=== PATIENT | male | born 1985 | race Hispanic/Latino ===

== ENCOUNTER 2017-12-06 09:12 | Emergency (ER) | payer SELFPAY ==
[2017-12-06] MEDS ORDERED: SODIUM CHLORIDE 0.9% 1000ML 1,000 ML IV ONE (09:34)
[2017-12-06 10:03] LABS: CREATININE 0.9 mg/dL (0.5-1.5); POTASSIUM 3.9 mmol/L (3.5-5.1)
[2017-12-06] MEDS ORDERED: ACETAMINOPHEN EXTRA STRENGTH 500 MG TABLET ONE (10:10)
[2017-12-06 10:18] LABS: BASOPHILS % (AUTO) 0.5 % (0.0-5.0); EOSINOPHILS % (AUTO) 1.9 % (0.0-8.0); HEMATOCRIT 43.1 % (42-54); LYMPHOCYTES % (AUTO) 26.3 % (21.0-51.0); MEAN CORPUSCULAR HEMOGLOBIN 28.7 pg (27.0-33.0); MEAN CORPUSCULAR HGB CONC 34.9 g/dL (32.0-36.0); MEAN CORPUSCULAR VOLUME 82.3 fL (79-99); MONOCYTES % (AUTO) 5.2 % (3.0-13.0); NEUTROPHILS % (AUTO) 66.1 % (40.0-77.0); NUCLEATED RED BLOOD CELLS 0.1 % (0.0-0.19); PLATELET COUNT (AUTO) 199 K/uL (130-400); RED BLOOD CELL COUNT(AUTO) 5.24 MIL/uL (4.50-6.20); RED CELL DISTRIBUTION WIDTH 12.6 % (11.0-15.5); WHITE BLOOD COUNT (AUTO) 6.7 K/uL (4.8-10.8)
[2017-12-06] MEDS ORDERED: ONDANSETRON HCL 4 MG/2 ML VIAL ONE (10:28)
[2017-12-06] MEDS ORDERED: METOCLOPRAMIDE 10 MG TABLET ONE (10:31)
[2017-12-06 11:02] LABS: APPEARANCE,URINE Clear (CLEAR); BILIRUBIN,URINE Negative (NEGATIVE); COLOR,URINE Yellow (YELLOW); GLUCOSE, URINE (UA) >=1000 mg/dL (NEGATIVE); KETONES,URINE 40 mg/dL (NEGATIVE); LEUKOCYTE ESTERASE ,URINE Negative (NEGATIVE); NITRATE,URINE Negative (NEGATIVE); OCCULT BLOOD,URINE Negative (NEGATIVE); PROTEIN,URINE Negative (NEGATIVE); UROBILINOGEN,URINE 0.2 mg/dL (0.2-1.0)
[2017-12-06 11:08] LABS: AMPHET/METH SCREEN,URINE NEGATIVE (NEGATIVE); BARBITURATE SCREEN, URINE NEGATIVE (NEGATIVE); BENZODIAZEPINES SCREEN,URINE NEGATIVE (NEGATIVE); CANNABINOID SCREEN,URINE NEGATIVE (NEGATIVE); COCAINE SCREEN,URINE POSITIVE (NEGATIVE); OPIATE SCREEN,URINE NEGATIVE (NEGATIVE); PHENCYCLIDINE SCREEN,URINE NEGATIVE (NEGATIVE)
[2017-12-06 11:31] LABS: RBC,URINE 0-1 /HPF (0-1); WBC,URINE 0-1 /HPF (0-1)
[2017-12-06 11:32] LABS: BACTERIA,URINE Few /HPF (None Seen)
== END 2017-12-06 13:20 | disposition home or self-care (01) ==
LOC: EDH 09:12
DX: S09.8XXA Other specified injuries of head, initial encounter (principal); T40.5X5A Adverse effect of cocaine, initial encounter; R51 Headache; I10 Essential (primary) hypertension; E11.9 Type 2 diabetes mellitus without complications; Z88.8 Allergy status to other drugs, medicaments and biological substances; V48.5XXA Car driver injured in noncollision transport accident in traffic accident, initial encounter; Y93.89 Activity, other specified; Y92.410 Unspecified street and highway as the place of occurrence of the external cause; Y99.8 Other external cause status
CPT/HCPCS: 36415; 70450; 80048; 80305; 81001; 85025; 93005; 96361; 96374; 99285; J2405; J7030

== ENCOUNTER 2018-04-01 15:34 | Emergency (ER) | payer SELFPAY | END 2018-04-01 16:03 | disposition home or self-care (01) | LOC: EDH 15:34 | DX: L03.032 Cellulitis of left toe (principal); E11.9 Type 2 diabetes mellitus without complications; I10 Essential (primary) hypertension ==

== ENCOUNTER 2018-08-21 15:03 | Emergency (ER) | payer SELFPAY ==
[2018-08-21] MEDS ORDERED: KETOROLAC TROMETHAMINE 60 MG/2 ML VIAL ONE (15:28)
[2018-08-21] MEDS ORDERED: ORPHENADRINE CITRATE 30 MG/ML ML ONE (15:28)
== END 2018-08-21 16:19 | disposition home or self-care (01) ==
LOC: EDH 15:03
DX: M62.838 Other muscle spasm (principal); M79.602 Pain in left arm
CPT/HCPCS: 72040; 96372 ×2; 99284; J1885; J2360

== ENCOUNTER 2019-02-04 21:25 | Emergency (ER) | payer OTHER ==
[2019-02-04 22:04] LABS: BASOPHILS % (AUTO) 0.3 % (0.0-5.0); EOSINOPHILS % (AUTO) 1.6 % (0.0-8.0); HEMATOCRIT 44.2 % (42-54); LYMPHOCYTES % (AUTO) 17.6 % (21.0-51.0); MEAN CORPUSCULAR HEMOGLOBIN 29.2 pg (27.0-33.0); MEAN CORPUSCULAR HGB CONC 34.4 g/dL (32.0-36.0); MEAN CORPUSCULAR VOLUME 85.1 fL (79-99); MONOCYTES % (AUTO) 4.4 % (3.0-13.0); NEUTROPHILS % (AUTO) 76.1 % (40.0-77.0); NUCLEATED RED BLOOD CELLS 0.1 % (0.0-0.19); PLATELET COUNT (AUTO) 176 K/uL (130-400); RED BLOOD CELL COUNT(AUTO) 5.19 MIL/uL (4.50-6.20); RED CELL DISTRIBUTION WIDTH 12.9 % (11.0-15.5); WHITE BLOOD COUNT (AUTO) 7.6 K/uL (4.8-10.8)
[2019-02-04 22:28] LABS: ALBUMIN 3.6 g/dL (3.5-5.0); BILIRUBIN,TOTAL 0.4 mg/dL (0.2-1.0); TOTAL PROTEIN, SERUM 6.8 g/dL (6.0-8.3)
[2019-02-04] MEDS ORDERED: METFORMIN HCL 500 MG TABLET ONE (22:47)
[2019-02-04] MEDS ORDERED: LIDOCAINE 5% TOPICAL PATCH TP ONE (23:29)
[2019-02-04] MEDS ORDERED: KETOROLAC TROMETHAMINE 30MG/ML ONE (23:29)
== END 2019-02-05 00:15 | disposition home or self-care (01) ==
LOC: EDH 21:25
DX: E86.9 Volume depletion, unspecified (principal); R55 Syncope and collapse; M62.838 Other muscle spasm; E11.9 Type 2 diabetes mellitus without complications; I10 Essential (primary) hypertension; Z88.8 Allergy status to other drugs, medicaments and biological substances; Z98.890 Other specified postprocedural states
CPT/HCPCS: 36415; 72040; 80053; 82550; 85025; 93005; 96361; 96374; 99285; J1885

== ENCOUNTER 2019-02-05 18:46 | Emergency (ER) | payer OTHER ==
[2019-02-05] MEDS ORDERED: PROCHLORPERAZINE EDISYLATE 10 MG/2 ML VIAL ONE (19:20)
[2019-02-05] MEDS ORDERED: DiphenhydrAMINE HCL 50 MG/ML VIAL ONE (19:34)
== END 2019-02-05 20:53 | disposition home or self-care (01) ==
LOC: EDH 18:46
DX: R51 Headache (principal); E11.9 Type 2 diabetes mellitus without complications; I10 Essential (primary) hypertension; F43.10 Post-traumatic stress disorder, unspecified; Z98.890 Other specified postprocedural states; Z88.8 Allergy status to other drugs, medicaments and biological substances
CPT/HCPCS: 70450; 96374; 96375; 99284; J0780; J1200

== ENCOUNTER 2020-03-16 07:16 | Emergency (ER) | payer SELFPAY | END 2020-03-16 08:09 | disposition home or self-care (01) | LOC: EDH 07:16 | DX: Z00.00 Encounter for general adult medical examination without abnormal findings (principal); I10 Essential (primary) hypertension; E11.9 Type 2 diabetes mellitus without complications; F43.10 Post-traumatic stress disorder, unspecified; Z88.8 Allergy status to other drugs, medicaments and biological substances | CPT/HCPCS: 99281 ==

== ENCOUNTER 2024-08-13 17:16 | Emergency (ER) | payer SELFPAY ==
[~2024-08-13] VITALS: Ht 176.5 cm; Wt 102.1 kg
[2024-08-13 17:56] VITALS: BP 162/82; PULSE 85; RESP 18; TEMP 98
--- NOTE | 2024-08-13 18:13 | ERN ---
ED Note History of Present Illness Stated Complaint: RIGHT FORE ARM PUNCTURE WOUND Chief Complaint: Upper Extremity Pain/Injury Time Seen by MD: 17:21 Time Seen by Midlevel: 17:21 Dictation: Patient is a 38-year-old male with a history of diabetes, hypertension who presents to the emergency department with complaints of right forearm puncture wound onset this morning. Patient reports he was moving some pallets and one of them had a nail in the nail puncture his skin which he removed. Patient does not recall his last tetanus shot. Patient reports also right hand pain for three weeks. Denies any injury but reports that pain is worse when closing hand and reports some numbness to 2nd 3rd and 4th fingers. Allergies: Coded Allergies: naproxen (Unverified Allergy, Unknown, 03/16/20) Home Meds Active Scripts Cephalexin Monohydrate (Keflex) 500 Mg Cap, 500 MG PO QID for 7 Days, #28 CAP Prov:VALENCIA VILLARREAL FORMULATOR 08/13/24 Past Medical History Past Medical History: Diabetes-Type II, Hypertension Surgical History: Other Surgical History Other: LEFT GREAT TOE INCISION RN Note Reviewed/Agreed w/PFSH: Yes Review of System Dictation Constitutional: Negative for fever,chills, and weight loss Eyes: Negative for injury, pain,redness, and discharge ENT: Negative for injury,pain or swelling Cardiovascular: Negative for chest pain, palpitations, and edema Respiratory: Negative for shortness of breath, cough, and wheezing, Abdomen/GI: Negative for abdominal pain, nausea, vomiting, diarrhea, and constipation Back: Negative for injury and pain : Negative for injury, bleeding and discharge MS/Extremity: Positive for right hand pain Skin: Positive for puncture wound right forearm Neuro: Negative for headache, weakness, numbness, tingling, and seizure Psych: Negative for suicide ideation, homicidal ideation, and hallucinations Initial Vital Sign VS Vital Signs Date Time Temp Pulse Resp B/P (MAP) Pulse Ox O2 Delivery O2 Flow Rate FiO2 08/13/24 17:56 98.1 85 18 162/82 99 Room Air 0 Physical Exam Dictation Vital Signs reviewed General Appearance: Alert, oriented x 3, no acute distress, well developed, nourished. Head and Face: non-traumatic. Eyes: PERRL, pink conjunctivas, eyelid no trauma, anterior chamber with arcus senilis. Ears: Pinnas intact and no signs of trauma or erythema ear canals clear and no discharge TM no erythema Nose: No discharge, no bleeding. Oropharynx: Mouth normal, tongue pink. pharynx clear,no erythema, tonsils no exudates, no abscesses noted, mucous membrane moist Neck: Supple, non-tender, no thyromegaly, no masses, no JVD, no bruits Breast:Deferred Chest:No tenderness, no crepitus, no paradoxical movement, no retractions Lungs:Clear, well-ventilated, symmetric, no rales, no wheezing, no rhonchi, no stridor, good breath sounds bilaterally Heart: Regular rate, regular rhythm, no murmur, no gallops Vascular: no peripheral edema, Abdomen: Soft, positive bowel sounds, nondistended, no guarding, nontender, no rebound, no masses no hepatomegaly, no splenomegaly, no Smith's sign, no hernias. Rectal: Deferred Genital: Deferred Neurological: Normal speech, motor function intact, sensory function intact Musculoskeletal: Neck nontender, full range of motion, back nontender, full range of motion, Extremities: nontender, full range of motion , full range of motion to hand, cap refill less than 2 seconds no wounds, small less than 0.2 Cm puncture wound to mid right forearm, no active bleeding. Skin: Color pink, dry, no turgor, no rash, no lacerations, no abrasions, no contusions. Lymphatic: Deferred Results (Laboratory/Radiology) Laboratory/Radiology Laboratory Tests Test 08/13/24 18:06 Urine Opiates Screen NEGATIVE (NEGATIVE) Urine Barbiturates Screen NEGATIVE (NEGATIVE) Urine Phencyclidine Screen NEGATIVE (NEGATIVE) Urine Amphetamines Screen NEGATIVE (NEGATIVE) Urine Benzodiazepines Screen NEGATIVE (NEGATIVE) Urine Cocaine Screen NEGATIVE (NEGATIVE) Urine Marijuana (THC) Screen NEGATIVE (NEGATIVE) REASON: pain ORDERING PHYSICIAN: VALENCIA VILLARREAL FORMULATOR PROCEDURE: FORARMR - FOREARM 2VWS RT RIGHT FOREARM RADIOGRAPHS - 2 VIEWS INDICATION: Pain COMPARISON: None FINDINGS: AP and lateral views. No acute fracture or subluxation identified. No radiopaque foreign body noted. IMPRESSION: No evidence for fracture or dislocation. REASON: pain ORDERING PHYSICIAN: VALENCIA VILLARREAL FORMULATOR PROCEDURE: FORARMR - FOREARM 2VWS RT RIGHT FOREARM RADIOGRAPHS - 2 VIEWS INDICATION: Pain COMPARISON: None FINDINGS: AP and lateral views. No acute fracture or subluxation identified. No radiopaque foreign body noted. IMPRESSION: No evidence for fracture or dislocation. Labs Reviewed?: Yes ED Course ED Course Orders Procedure Category Date Status Time Hand 3+Vws Rt RAD 08/13/24 Resulted 17:47 Forearm 2vws Rt RAD 08/13/24 Resulted 17:47 Diph,Pertuss(Acell),Tet PHA 08/13/24 Complete Vac/Pf (Tdap) 18:00 Wound Care (Er) CPOE 08/13/24 Transmitted 17:47 Acetaminophen 500mg PHA 08/13/24 Complete Tab (Tylenol 500mg T 18:00 Thumb & Wrist JAN.ER 08/13/24 Complete Immobilizer 18:41 Drug Screen Urine LAB 08/13/24 Complete 18:44 Current Medications Medications (Trade) Dose Ordered Sig/Serina Route PRN Reason Start Time Stop Time Status Last Admin Dose Admin Acetaminophen (TYLenol 500MG TAB) 1,000 mg ONCE ONCE PO 08/13/24 18:00 08/13/24 18:01 DC 08/13/24 18:14 Diphtheria/ Tetanus/Acell Pertussis (Tdap) 0.5 ml ONCE ONCE IM 08/13/24 18:00 08/13/24 18:01 DC 08/13/24 18:44 Vital Signs Date Time Temp Pulse Resp B/P (MAP) Pulse Ox O2 Delivery O2 Flow Rate FiO2 08/13/24 17:56 98.1 85 18 162/82 99 Room Air 0 Medical Decision Making MDM Patient is a 38-year-old male with a history of diabetes, hypertension who presents to the emergency department with complaints of right forearm puncture wound onset this morning. Patient reports he was moving some pallets and one of them had a nail in the nail puncture his skin which he removed. Patient does not recall his last tetanus shot. Patient reports also right hand pain for three weeks. Denies any injury but reports that pain is worse when closing hand and reports some numbness to 2nd 3rd and 4th fingers. Hand and forearm x-ray showed no acute fractures. Patient's wound is significantly small and no repair required. Patient will be discharged to follow up with PCP. Differential diagnosis: Hand fracture, retained foreign body, ulna fracture, cellulitis Need for hospitalization: Patient does not meet criteria for hospitalization. There are no social concerns with this patient. DX & DISP Disposition: Discharge Departure Impression: Primary Impression: Puncture wound Additional Impression: Carpal tunnel syndrome Condition: Stable Scripts Cephalexin Monohydrate (Keflex) 500 Mg Cap 500 MG PO QID for 7 Days, #28 CAP Prov: VALENCIA VILLARREAL 08/13/24 Additional Instructions: FOLLOW-UP WITH PRIMARY CARE PROVIDER IN 1 TO 2 DAYS. TAKE MEDICATIONS DIRECTED HERE IN THE EMERGENCY ROOM. OKAY TO CONTINUE HOME MEDICATIONS UNLESS OTHERWISE DISCUSSED DURING YOUR VISIT IN THE EMERGENCY ROOM TODAY. RETURN TO YOUR NEAREST EMERGENCY ROOM IF SYMPTOMS WORSEN OR IF THERE IS NO IMPROVEMENT. CALL 911 IF YOU NEED IMMEDIATE ASSISTANCE. TAKE TYLENOL OR MOTRIN [id number] NEEDED AND IF NO CONTRAINDICATIONS ARE PRESENT. INCREASE ORAL HYDRATION. A WOUND CULTURE OR URINE CULTURE WAS ORDERED HERE IN THE [facility] DEPARTMENT PLEASE FOLLOW-UP WITH PRIMARY CARE PROVIDER AND ADVISE THEM TO GET REPEAT PORTS FROM OUR FACILITY. IF YOU HAD ANY NAJMA WRAP/SPLINTS THAT WERE APPLIED HERE, PLEASE DO NOT REMOVE THEM UNTIL YOU SEE YOUR PRIMARY CARE OR SPECIALTY. Referrals: NONE (PCP) Time of Disposition: 18:44 I have reviewed the case, and I agree with, Diagnosis and Plan VALENCIA VILLARREAL Aug 13, 2024 18:13 MARYAM FRIEDMAN DO Aug 15, 2024 07:53
[2024-08-13] MEDS: acetaMINOPHEN 500 MG TABLET PO ONE (18:14)
--- NOTE | 2024-08-13 18:32 | HMCIMG ---
RIGHT HAND RADIOGRAPHS - 3 VIEWS INDICATION: Pain COMPARISON: None FINDINGS: AP, lateral, and oblique views. No acute fracture of subluxation identified. Scaphoid bone is intact. Carpal alignment and ulnar variance is within normal limits. No radiopaque foreign body noted. IMPRESSION: No evidence for fracture or subluxation.
--- NOTE | 2024-08-13 18:34 | HMCIMG ---
RIGHT FOREARM RADIOGRAPHS - 2 VIEWS INDICATION: Pain COMPARISON: None FINDINGS: AP and lateral views. No acute fracture or subluxation identified. No radiopaque foreign body noted. IMPRESSION: No evidence for fracture or dislocation.
[2024-08-13] MEDS: DIPH,PERTUSS(ACELL),TET VAC/PF 0.5 ML VIAL IM ONE (18:44)
[2024-08-13] MEDS ORDERED: CEPH500B PO (18:54)
[2024-08-13 20:41] LABS: AMPHET/METH SCREEN,URINE NEGATIVE (NEGATIVE); BARBITURATE SCREEN, URINE NEGATIVE (NEGATIVE); BENZODIAZEPINES SCREEN,URINE NEGATIVE (NEGATIVE); CANNABINOID SCREEN,URINE NEGATIVE (NEGATIVE); COCAINE SCREEN,URINE NEGATIVE (NEGATIVE); OPIATE SCREEN,URINE NEGATIVE (NEGATIVE); PHENCYCLIDINE SCREEN,URINE NEGATIVE (NEGATIVE)
== END 2024-08-13 20:59 | disposition home or self-care (01) ==
LOC: EDH 17:16
DX: S51.831A Puncture wound without foreign body of right forearm, initial encounter (principal); G56.01 Carpal tunnel syndrome, right upper limb; E11.41 Type 2 diabetes mellitus with diabetic mononeuropathy; I10 Essential (primary) hypertension; Z88.6 Allergy status to analgesic agent; Z79.899 Other long term (current) drug therapy; Z98.890 Other specified postprocedural states; W45.0XXA Nail entering through skin, initial encounter; Y93.89 Activity, other specified; Y92.89 Other specified places as the place of occurrence of the external cause; Y99.8 Other external cause status
CPT/HCPCS: 73090; 73130; 80305; 90471; 90715